=== PATIENT | female | born 1990 | race Caucasian/White ===

== ENCOUNTER 2017-05-30 07:13 | Emergency (ER) | payer BC ==
[~2017-05-30] VITALS: Ht 152.4 cm; Wt 52.2 kg
[2017-05-30] MEDS ORDERED: IBUPROFEN 800800 M1 PO (07:26)
[2017-05-30] MEDS ORDERED: PHENERGAN 25 MG25 M1 PO (07:28)
[2017-05-30 07:44] LABS: URINE BILIRUBIN NEGATIVE (Negative); URINE BLOOD 3+ (Negative); URINE CLARITY SL CLOUDY; URINE COLOR YELLOW; URINE GLUCOSE-RANDOM NEGATIVE (Negative); URINE KETONES NEGATIVE (Negative); URINE LEUKOCYTES-REFLEX TRACE (Negative); URINE NITRITE-REFLEX NEGATIVE (Negative); URINE PROTEIN TRACE (Negative); URINE SPECIFIC GRAVITY 1.025 (1.005-1.030); URINE UROBILINOGEN 0.2 E.U./dl (0.2-1.0)
[2017-05-30 07:50] LABS: CASTS None Seen /LPF (None Seen); CRYSTALS None Seen /LPF (None Seen); MUCUS 0-3 Light strn/LPF (None Seen); SQUAMOUS 4-10 Moderate /LPF (0-3); URINE RBC >20 Many /HPF (0-2); URINE WBC-REFLEX 6-15 Few /HPF (0-5)
[2017-05-30 07:59] LABS: ABSOLUTE EOSINOPHILS 0.1 thou/uL (0.0-0.7); ABSOLUTE LYMPHOCYTES 1.6 thou/uL (0.8-5.3); ABSOLUTE MONOCYTES 0.9 thou/uL (0.0-1.2); ABSOLUTE NEUTROPHILS 9.4 thou/uL (1.6-8.1); BASOPHILS 0.3 %; HEMATOCRIT 41.7 % (37.0-47.0); HEMOGLOBIN 14.2 gm/dL (12.0-15.0); LYMPHOCYTES 13.1 %; MCH 30.7 pg (26.0-34.0); MCHC 34.2 g/dL (28.0-37.0); MCV 89.7 fL (80.0-100.0); MONOCYTES 7.3 %; MPV 8.3 fl. (7.2-11.1); NUCLEATED RBCS 0 /100WBC; PLATELET COUNT* 209 thou/uL (150-400); POLYS 78.3 %; RBC 4.65 mil/uL (4.20-5.00); RDW-CV 12.6 % (10.5-14.5)
[2017-05-30 08:02] LABS: CALCIUM 8.6 mg/dL (8.5-10.1); CREATININE 1.1 mg/dL (0.6-1.3); POTASSIUM 3.5 mmol/L (3.5-5.1)
[2017-05-30 10:53] VITALS: BP 118/79
[2017-05-30] MEDS ORDERED: BACTRIM DS TAB1 EACH PO (11:34)
== END 2017-05-30 10:53 | disposition home or self-care (01) ==
LOC: M.ERS 07:13
PROVIDERS: Personal Emergency Response Attendant
DX: N23 Unspecified renal colic (principal); Z88.1 Allergy status to other antibiotic agents; Z88.6 Allergy status to analgesic agent